=== PATIENT | female | born 2000 | race Caucasian/White ===

== ENCOUNTER 2020-10-18 14:01 | Outpatient (CLI) | payer OTHER, SELFPAY ==
[2020-10-18 14:25] LABS: Hematocrit 41.6 % (37.0-47.0); Hemoglobin 13.9 g/dL (12.0-15.0); Mean Corpuscular HGB Conc 33.4 g/dl (32-36); Mean Corpuscular Hemoglobin 29.3 pg (26-34); Mean Corpuscular Volume 87.8 fl (80-100); Mean Platelet Volume 11.1 fl (7.4-10.4); Platelet Count Result 233 k/mm3 (150-375); Red Blood Count 4.74 M/mm3 (4.2-5.4); Red Cell Distribution Width 12.8 % (11.5-14.5); White Blood Count 6.8 K/mm3 (4.5-10.0)
[2020-10-18 15:17] LABS: Thyroid Stimulating Hormone 0.978 uIU/mL (0.465-4.680)
[2020-10-18 16:11] LABS: Free T4 Free Thyroxine 0.91 ng/mL (0.78-2.19); Vitamin D 25 Hydroxy 30.1 ng/mL
== END 2020-10-18 14:02 | disposition home or self-care (01) ==
PROVIDERS: Visit Provider Nurse Practitioner
DX: R53.83 Other fatigue (principal)
CPT/HCPCS: 36415; 82306; 82607; 84439; 84443; 85027